=== PATIENT | male | born 2000 | race Caucasian/White ===

== ENCOUNTER 2020-04-11 14:53 | Emergency (ER) | payer OTHER ==
[2020-04-11 15:03] VITALS: BP 130/83
[2020-04-11 15:14] LABS: RAPID STREP SCREEN Negative (Negative)
--- NOTE | 2020-04-11 15:41 | ED Physician Documentation ---
History of Present Illness - Stated complaint Stated Complaint: SORE / SWOLLEN THROAT - Chief complaint Chief Complaint: Heent - History obtained from History obtained from: Patient - History of Present Illness Timing: How many days ago (3) Pain level max: 5 Pain level now: 4 - Additonal information Additional information: 19-year-old male with a sore throat for the past 3 days. Subjective fevers at home. Nothing makes it better or worse. No cough. No rhinorrhea or congestion. No ear pain. No nausea or vomiting. No abdominal pain. Review of Systems Constitutional: reports: Fever. denies: Chills Nose: denies: Rhinorrhea / runny nose, Congestion GI: denies: Abdominal Pain, Vomiting, Diarrhea Skin: denies: Rash Musculoskeletal: denies: Neck pain, Back pain Neurologic: denies: Headache PD PAST MEDICAL HISTORY - Past Medical History Past Medical History: No - Past Surgical History Past Surgical History: No - Present Medications Home Medications: Ambulatory Orders Medication Instructions Recorded Confirmed Ibuprofen [Motrin] 800 mg PO Q8H PRN #30 tablet 04/11/20 Penicillin V Potassium 500 mg PO Q6HR #40 tablet 04/11/20 - Allergies Allergies/Adverse Reactions: Allergies Allergy/AdvReac Type Severity Reaction Status Date / Time No Known Drug Allergies Allergy Verified 04/11/20 14:56 - Living Situation Living Arrangement: reports: At home - Social History Does the pt have substance abuse?: No - Family History Family history: reports: Non contributory - Immunizations Immunizations are current?: Yes PD ED PE NORMAL - Vitals Vital signs reviewed: Yes - General General: Alert and oriented X 3, No acute distress - HEENT HEENT: Ears normal, Moist mucous membranes, Other (Posterior oropharynx is erythematous with tonsillar exudates. Normal phonation. No trismus. Uvula midline.) - Neck Neck: Supple, no meningeal sign, Other (Shotty anterior lymphadenopathy) - Cardiac Cardiac: RRR, Strong equal pulses - Respiratory Respiratory: No respiratory distress, Clear bilaterally - Abdomen Abdomen: Soft, Non tender, Non distended - Derm Derm: Warm and dry, No rash - Neuro Neuro: Alert and oriented X 3 - Psych Psych: Normal mood, Normal affect Results - Vitals Vitals: Vital Signs - 24 hr 04/11/20 14:57 Temperature 37.0 C Heart Rate 79 Respiratory 14 Rate Blood Pressure 130/83 H O2 Saturation 98 Oxygen O2 Source Room air - Labs Labs: Laboratory Tests 04/11/20 15:00 Group A Strep Rapid Negative PD MEDICAL DECISION MAKING - ED course Complexity details: reviewed results, considered differential, d/w patient ED course: Patient with what appears to be strep pharyngitis clinically. Will place on antibiotics and anti-inflammatories for home. He is well-appearing, nontoxic. Afebrile. No peritonsillar or retropharyngeal abscess. Patient counseled regarding signs and symptoms for which I believe and urgent re-evaluation would be necessary. Patient with good understanding of and agreement to plan and is comfortable going home at this time This document was made in part using voice recognition software. While efforts are made to proofread this document, sound alike and grammatical errors may occur. Departure - Departure Disposition: 01 Home, Self Care Clinical Impression: Strep pharyngitis Condition: Good Instructions: ED Strep Pharyngitis Conf Follow-Up: Daniel Saravia MD [Primary Care Provider] - As Needed Prescriptions: Penicillin V Potassium 500 mg PO Q6HR #40 tablet Ibuprofen [Motrin] 800 mg PO Q8H PRN #30 tablet PRN Reason: PAIN &/OR FEVER Comments: Take all antibiotics until gone. Return if you worsen. Follow-up with your doctor as needed for further care. Drink plenty of fluids and rest. Forms: Activity restrictions
== END 2020-04-11 15:48 | disposition home or self-care (01) ==
LOC: ED 14:53
DX: J02.0 Streptococcal pharyngitis (principal)
CPT/HCPCS: 81599; 87070; 87077; 87430; 99283; 99284